=== PATIENT | female | born 1955 | race Caucasian/White ===

== ENCOUNTER 2017-12-10 16:17 | Emergency (ER) | payer MEDICARE, OTHER ==
[~2017-12-10] VITALS: Ht 177.8 cm; Wt 95.0 kg
[2017-12-10 18:33] LABS: BASOPHILS % (AUTO) 0.2 % (0-1); EOSINOPHILS # (AUTO) 0.3 X10'3 (0-0.9); HEMATOCRIT 39.7 % (35.0-45.0); HEMOGLOBIN 13.5 g/dl (12.0-16.0); LYMPHOCYTES % (AUTO) 28.5 % (21-51); MEAN CORPUSCULAR HEMOGLOBIN 28.5 PG (27.0-31.0); MEAN CORPUSCULAR VOLUME 83.8 FL (78-98); MEAN PLATELET VOLUME 7.9 FL (7.4-10.4); MONOCYTES # (AUTO) 0.3 X10'3 (0-0.9); MONOCYTES % (AUTO) 4.9 % (2-12); NEUTROPHILS # (AUTO) 4.3 X10'3 (1.8-7.7); NEUTROPHILS % (AUTO) 62.4 % (42-75); PLATELET COUNT 145 X10'3 (140-440); RED BLOOD COUNT 4.74 X10'6 (4.20-5.60); RED CELL DISTRIBUTION WIDTH 14.7 % (11.5-14.5); WHITE BLOOD COUNT 6.9 X10'3 (4.5-11.0)
[2017-12-10 18:49] LABS: ALANINE AMINOTRANSFERASE 19 U/L (12-78); ALBUMIN 3.9 G/DL (3.4-5.0); ALKALINE PHOSPHATASE 101 IU/L (46-116); ANION GAP 6 (8-16); ASPARTATE AMINO TRANSFERASE 19 U/L (10-37); BLOOD UREA NITROGEN 14 MG/DL (7-18); BUN/CREATININE RATIO 17.1 (6.6-38.0); CALCIUM 9.5 MG/DL (8.5-10.1); CHLORIDE 103 MMOL/L (99-107); CREATININE 0.82 MG/DL (0.40-0.90); GLUCOSE 101 MG/DL (70-104); POTASSIUM 3.6 MMOL/L (3.5-5.1); SODIUM 142 MMOL/L (135-145); TOTAL CARBON DIOXIDE 32.9 MMOL/L (24-32); eGFR 71 ML/MIN
[2017-12-10 18:57] LABS: ETHANOL < 0.010 GM/DL (0.0-0.010)
[2017-12-10 20:27] LABS: URINE AMPHETAMINE SCREEN NEGATIVE (Neg); URINE BARBITUATE SCREEN NEGATIVE (Neg); URINE BENZODIAZEPINES SCREEN POSITIVE (Neg); URINE CANNABINOID SCREEN NEGATIVE (Neg); URINE COCAINE SCREEN NEGATIVE (Neg); URINE METHADONE SCREEN NEGATIVE (Neg); URINE OPIATE SCREEN POSITIVE (Neg); URINE PHENCYCLIDINE SCREEN NEGATIVE (Neg)
[2017-12-10] MEDS ORDERED: ALPR2TAB7 PO (23:04)
[2017-12-10] MEDS ORDERED: TIZA2TAB4 PO (23:04)
[2017-12-10] MEDS ORDERED: POTA10TA36 PO (23:04)
[2017-12-10] MEDS ORDERED: DULO60CA64 PO (23:04)
[2017-12-10] MEDS ORDERED: CHLO25TA10 PO (23:04)
[2017-12-10] MEDS ORDERED: LEVO50TA8 PO (23:04)
[2017-12-10] MEDS ORDERED: SUVO20TA PO (23:04)
[2017-12-10] MEDS ORDERED: BUPR750F3 SL (23:04)
[2017-12-10] MEDS ORDERED: HYDR4TAB55 PO (23:04)
[2017-12-10] MEDS ORDERED: DULO30CA51 PO (23:04)
[2017-12-10 23:28] VITALS: BP 149/89
== END 2017-12-10 23:18 | disposition home or self-care (01) ==
LOC: ER 16:18
DX: R44.2 Other hallucinations (principal); I10 Essential (primary) hypertension; J44.9 Chronic obstructive pulmonary disease, unspecified; G89.29 Other chronic pain; Z98.890 Other specified postprocedural states; Z60.2 Problems related to living alone; Z88.8 Allergy status to other drugs, medicaments and biological substances
CPT/HCPCS: 36415; 80053; 80305; 80320; 84443; 85025; 99284

== ENCOUNTER 2020-02-07 21:05 | Emergency (ER) | payer MEDICARE ==
[~2020-02-07] VITALS: Ht 177.8 cm; Wt 88.6 kg
[~2020-02-07 21:05] MED LIST: ALPR2TAB7 PO; BUPR750F3 SL; CHLO25TA10 PO; DULO30CA52 PO; DULO60CA65 PO; HYDR4TAB55 PO; LEVO50TA8 PO; POTA10TA36 PO; SUVO20TA PO; TIZA2TAB7 PO
[2020-02-07] MEDS ORDERED: TETanus/Pertussis (Acell)/Diphther VAC/PF (Tdap-Adult) 0.5ml syringe IMVAC ONE (22:10)
[2020-02-07] MEDS ORDERED: LIDOcaine 1% W/epiNEPHrine 1:200,000 10ml vial IJ ONE (22:10)
[2020-02-07 23:08] VITALS: BP 159/92
== END 2020-02-07 23:13 | disposition home or self-care (01) ==
LOC: ER 21:05
DX: S61.215A Laceration without foreign body of left ring finger without damage to nail, initial encounter (principal); I10 Essential (primary) hypertension; J44.9 Chronic obstructive pulmonary disease, unspecified; M19.90 Unspecified osteoarthritis, unspecified site; G89.29 Other chronic pain; Z88.8 Allergy status to other drugs, medicaments and biological substances; Z79.899 Other long term (current) drug therapy; W26.9XXA Contact with unspecified sharp object(s), initial encounter; Y93.89 Activity, other specified; Y92.89 Other specified places as the place of occurrence of the external cause; Y99.8 Other external cause status
CPT/HCPCS: 10060; 12001; 90471; 90715; 99283